=== PATIENT | female | born 1940 | race Caucasian/White ===

== ENCOUNTER → 2017-06-06 | Outpatient (CLI) | payer MEDICARE ==
[~2017-06-06] MED LIST: ASPI-496 PO; ASPI-621 PO; CARV6.252 PO; CHOL100012 PO; DULA1.5P INJ; GLIM4TAB2 PO; INSU300I IJ; LOSA1TAB22 PO; PRAV40TA2 PO; TRAM50TA2 PO
== END ==
LOC: RAD 17:49
PROVIDERS: ATTEND Family Medicine
DX: S09.90XA Unspecified injury of head, initial encounter (principal); S09.93XA Unspecified injury of face, initial encounter; I67.82 Cerebral ischemia; X58.XXXA Exposure to other specified factors, initial encounter; Y93.89 Activity, other specified; Y92.89 Other specified places as the place of occurrence of the external cause; Y99.8 Other external cause status
CPT/HCPCS: 70450; 70486

== ENCOUNTER → 2017-09-25 | Outpatient (CLI) | payer MEDICARE | END | disposition home or self-care (01) | LOC: CFH 13:48 | PROVIDERS: ATTEND Physician Assistant | DX: D25.1 Intramural leiomyoma of uterus (principal) | CPT/HCPCS: 76830 ==

== ENCOUNTER 2018-11-14 14:08 | Emergency (ER) | payer MEDICARE ==
[~2018-11-14] VITALS: Ht 170.2 cm; Wt 73.3 kg
[~2018-11-14 14:08] MED LIST changes: -ASPI-621 PO; +ASPI81TA45 PO
[2018-11-14] MEDS ORDERED: SODIUM CHLORIDE FLUSH 10ML SYR IVF ONE (15:00)
--- NOTE | 2018-11-14 15:01 | NUR ---
PT RESTING IN GURNEY WITH DAUGHTER AT BEDSIDE. PT CANNOT URINATE AT THIS TIME, REQUESTING WATER, OK PER AIRAM MARC. PT WILL DRINK AND TRY AGAIN, REFUSING STRAIGHT CATH AT THIS TIME
[2018-11-14 15:03] LABS: BASOPHILS # (AUTO) 0.04 x10^3/uL (0-0.1); BASOPHILS % (AUTO) 1 % (0-1); EOSINOPHILS # (AUTO) 0.21 x10^3/uL (0-0.4); EOSINOPHILS % (AUTO) 4 % (1-7); LYMPHOCYTES # (AUTO) 1.04 x10^3/uL (1-3.4); LYMPHOCYTES % (AUTO) 20 % (22-44); MD NO; MEAN CORPUSCULAR HEMOGLOBIN 29.5 pg (27.0-34.8); MEAN CORPUSCULAR VOLUME 89.5 fL (80-100); MEAN PLATELET VOLUME 9.4 fL (7.4-10.4); MONOCYTES # (AUTO) 0.55 x10^3/uL (0.2-0.8); MONOCYTES % (AUTO) 11 % (2-9); NEUTROPHILS % (AUTO) 64 % (42-75); PLATELET COUNT 185 x10^3/uL (130-400); RED BLOOD COUNT 4.48 x10^6/uL (3.82-5.3); RED CELL DISTRIBUTION WIDTH 12.9 % (9.6-15.2)
[2018-11-14 15:06] LABS: INTERNATIONAL NORMALIZED RATIO 0.94 (0.93-1.1); PROTHROMBIN TIME 9.9 Seconds (9.6-11.5)
[2018-11-14 15:10] LABS: ALBUMIN 3.6 g/dL (3.4-5.0); ANION GAP 6 mmol/L (5-15); CALCIUM 9.7 mg/dL (8.5-10.1); CHLORIDE 107 mmol/L (98-107); CREATININE 1.73 mg/dL (0.55-1.02)
[2018-11-14 15:13] LABS: TROPONIN I < 0.015 ng/mL (0.000-0.045)
--- NOTE | 2018-11-14 16:09 | NUR ---
UA SENT TO LAB
[2018-11-14 16:28] LABS: MICROSCOPIC INDICATED
[2018-11-14] MEDS ORDERED: MECLIZINE CHEWABLE 25 MG TAB PO ONE (16:30)
[2018-11-14] MEDS ORDERED: MECLIZINE CHEWABLE 25 MG TAB ONE (16:41)
[2018-11-14 17:13] VITALS: BP 137/76
== END 2018-11-14 17:19 | disposition home or self-care (01) ==
LOC: ED 15:28
DX: E11.22 Type 2 diabetes mellitus with diabetic chronic kidney disease (principal); I12.9 Hypertensive chronic kidney disease with stage 1 through stage 4 chronic kidney disease, or unspecified chronic kidney disease; N18.2 Chronic kidney disease, stage 2 (mild); R42 Dizziness and giddiness; Z88.6 Allergy status to analgesic agent; E78.00 Pure hypercholesterolemia, unspecified; Z79.899 Other long term (current) drug therapy; N30.00 Acute cystitis without hematuria
CPT/HCPCS: 36415; 70450; 71045; 80048; 81001; 82040; 83880; 84484; 85025; 85610; 93005; 99284